=== PATIENT | male | born 2000 | race Caucasian/White ===

== ENCOUNTER → 2019-03-09 | Outpatient (CLI) | payer BC ==
--- NOTE | 2019-03-09 16:18 | Diagnostic Imaging Report ---
INDICATION: Right testicular swelling and pain. Trauma. FINDINGS: Right testicle measures 3.5 x 2.1 x 2.7 cm. Left testicle measures 3.8 x 1.8 x 2.2 cm. There is normal blood flow to both testes. No findings are seen to suggest hematoma. The epididymides are normal bilaterally. There is noted a small hydrocele on the right. No evidence of varicocele. IMPRESSION: 1. Testicles appear normal bilaterally. 2. Small hydrocele present on the right. Dictated by: Dictated on workstation # [id number]
== END ==
LOC: RAD 15:41
PROVIDERS: ATTEND Nurse Practitioner Family
DX: S39.94XA Unspecified injury of external genitals, initial encounter (principal); N43.3 Hydrocele, unspecified
CPT/HCPCS: 76870